=== PATIENT | female | born 1980 | race Caucasian/White ===

== ENCOUNTER → 2016-08-03 | Outpatient (CLI) | payer BC | LOC: FIMAGING 12:15 | PROVIDERS: ATTEND Advanced Practice Midwife | DX: O09.512 Supervision of elderly primigravida, second trimester (principal); Z3A.21 21 weeks gestation of pregnancy; E03.9 Hypothyroidism, unspecified ==

== ENCOUNTER → 2016-12-17 | Outpatient (CLI) | payer BC | LOC: FIMAGING 14:36 | PROVIDERS: ATTEND Advanced Practice Midwife ==

== ENCOUNTER → 2017-03-29 | Outpatient (CLI) | payer BC | LOC: FIMAGING 14:30 | PROVIDERS: ATTEND Obstetrics & Gynecology Maternal & Fetal Medicine | DX: Z31.69 Encounter for other general counseling and advice on procreation (principal) ==